=== PATIENT | female | born 1955 | race Caucasian/White ===

== ENCOUNTER 2023-04-14 09:49 | Outpatient (OUT) | payer MEDICARE, OTHER, SELFPAY ==
[2023-04-14 10:29] LABS: Basophils Percent Auto 0.8 % (0.2-2.0); Eosinophils Absolute Auto 0.1 10^3/uL (0.0-0.7); Eosinophils Percent Auto 2.7 % (0.9-7.0); Hematocrit 44.8 % (36.0-48.0); Hemoglobin 14.2 g/dL (12.0-16.0); Immature Granulocytes Abs Auto 0.02 10^3/uL (0.00-0.03); Immature Granulocytes Pct Auto 0.4 % (0.0-0.5); Lymphocytes Absolute Auto 1.8 10^3/uL (1.2-3.8); Mean Corpuscular HGB Conc 31.7 g/dL (29.9-35.2); Mean Corpuscular Hemoglobin 28.4 pg (26.7-34.0); Mean Corpuscular Volume 89.6 fL (81.0-99.0); Mean Platelet Volume 9.8 fL (9.5-13.5); Monocytes Absolute Auto 0.5 10^3/uL (0.3-0.8); Monocytes Percent Auto 9.7 % (1.7-12.0); Neutrophils Absolute Auto 2.8 10^3/uL (1.4-6.5); Neutrophils Percent Auto 52.4 % (43.0-75.0); Platelet Count 244 10^3/uL (150-450); Red Cell Distribution Width 13.1 % (11.0-15.0); White Blood Count 5.3 10^3/uL (4.0-11.0)
[2023-04-14 11:15] LABS: Microalbumin Urine Random <1.3 mg/dL (<=30.0)
[2023-04-14 11:15] LABS: Alanine Aminotransferase 29 U/L (14-59); Anion Gap 8.4; BUN Creatinine Ratio 20.2; Calcium 8.5 mg/dL (8.5-10.1); Carbon Dioxide 29.8 mmol/L (21.0-32.0); Chloride 103 mmol/L (98-107); Chol HDL Ratio 2.6; Cholesterol 166 mg/dL (<=200); Estimated GFR (African America >60 (>=60); Estimated GFR (Non-African Ame 50 (>=60); Glucose 156 mg/dL (74-106); HDL Cholesterol 63 mg/dL (40-60); Potassium 4.2 mmol/L (3.5-5.1); Sodium 137 mmol/L (136-145); Triglycerides 103 mg/dL (<=150); VLDL CHOLESTEROL 20.6 mg/dL
== END 2023-04-14 09:50 | disposition home or self-care (01) ==
PROVIDERS: PCP Internal Medicine; Visit Provider Internal Medicine
DX: E10.65 Type 1 diabetes mellitus with hyperglycemia (principal); I10 Essential (primary) hypertension; E78.2 Mixed hyperlipidemia; Z79.899 Other long term (current) drug therapy
CPT/HCPCS: 36415; 80048; 80061; 82043; 84460; 85025

== ENCOUNTER 2024-04-30 10:26 | Outpatient (OUT) | payer MEDICARE, OTHER, SELFPAY ==
[2024-04-30 11:24] LABS: Basophils Absolute Auto 0.1 10^3/uL (0.0-0.1); Basophils Percent Auto 1.3 % (0.2-2.0); Eosinophils Absolute Auto 0.2 10^3/uL (0.0-0.7); Eosinophils Percent Auto 3.8 % (0.9-7.0); Hematocrit 43.7 % (36.0-48.0); Hemoglobin 14.4 g/dL (12.0-16.0); Immature Granulocytes Abs Auto 0.02 10^3/uL (0.00-0.03); Immature Granulocytes Pct Auto 0.4 % (0.0-0.5); Lymphocytes Percent Auto 38.1 % (20.5-60.0); Mean Corpuscular Hemoglobin 29.2 pg (26.7-34.0); Mean Corpuscular Volume 88.6 fL (81.0-99.0); Monocytes Absolute Auto 0.5 10^3/uL (0.3-0.8); Neutrophils Absolute Auto 2.5 10^3/uL (1.4-6.5); Neutrophils Percent Auto 46.4 % (43.0-75.0); Platelet Count 261 10^3/uL (150-450); Red Blood Count 4.93 10^6/uL (4.20-5.40); Red Cell Distribution Width 13.1 % (11.0-15.0); White Blood Count 5.3 10^3/uL (4.0-11.0)
[2024-04-30 11:33] LABS: Microalbumin Urine Random <1.3 mg/dL (<=30.0)
[2024-04-30 16:10] LABS: Alanine Aminotransferase 30 U/L (14-59); Albumin Globulin Ratio 0.9; Albumin Level 3.6 g/dL (3.4-5.0); Alkaline Phosphatase 81 U/L (46-116); Anion Gap 13.2; Aspartate Amino Transferase 35 U/L (15-37); Bilirubin Total 0.7 mg/dL (0.2-1.0); Calcium 8.8 mg/dL (8.5-10.1); Carbon Dioxide 29.1 mmol/L (21.0-32.0); Chloride 102 mmol/L (98-107); Chol HDL Ratio 2.7; Cholesterol 173 mg/dL (<=200); Estimated GFR (African America >60 (>=60); Estimated GFR (Non-African Ame 55 (>=60); Globulin 3.9 g/dL; Glucose 139 mg/dL (74-106); HDL Cholesterol 63 mg/dL (40-60); Potassium 4.3 mmol/L (3.5-5.1); Sodium 140 mmol/L (136-145); Total Protein 7.5 g/dL (6.4-8.2); Triglycerides 96 mg/dL (<=150); VLDL CHOLESTEROL 19.2 mg/dL
== END 2024-04-30 10:27 | disposition home or self-care (01) ==
LOC: LAB 10:34
PROVIDERS: PCP Internal Medicine; Visit Provider Internal Medicine
DX: I12.9 Hypertensive chronic kidney disease with stage 1 through stage 4 chronic kidney disease, or unspecified chronic kidney disease (principal); N18.9 Chronic kidney disease, unspecified; E10.42 Type 1 diabetes mellitus with diabetic polyneuropathy; E78.00 Pure hypercholesterolemia, unspecified; E55.9 Vitamin D deficiency, unspecified
CPT/HCPCS: 36415; 80053; 80061; 82043; 82306; 85025

== ENCOUNTER 2025-05-02 10:47 | Outpatient (OUT) | payer MEDICARE, OTHER, SELFPAY ==
--- OUTSIDE RECORDS SUMMARY | 2025-04-29 10:45 | XMS_ITS | Encounter Summary ---
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 Never 05/30/2023 Q2: How many drinks containi ng alcohol do you have on a typical day when you are drinking? Patient does not drink Q3: How often do you have si x or more drinks on one occasion? Never 05/30/2023 PHQ-2 Answer Date Recorded Patient Health Questionnaire-2 Score 0 04/29/2025 Comments Unknown Sex and Gender Information Value Date Recorded Sex Assigned at Not on file Legal Sex Female 8:28 PM EDT Gender Identity Not on file Sexual Orientation Not on file documented as of this encounter Last Filed Vital Signs Vital Sign Reading Time Taken Comments Blood Pressure 116/64 04/29/2025 10:51 AM EDT Pulse 68 04/29/2025 10:51 AM EDT Temperature 36.7 C (98.1 F) 04/29/2025 10:51 AM EDT Respiratory Rate - - Oxygen Saturation 98% 04/29/2025 10:51 AM EDT Inhaled Oxygen Concentration - - Weight 72.1 kg (159 lb) 04/29/2025 10:51 AM EDT Height 157.5 cm (5' 2 ) 04/29/2025 10:51 AM EDT Body Mass Index 29.08 04/29/2025 10:51 AM EDT documented in this encounter Functional Status * Over the past 2 weeks, how often have you been bothered by any of the following problems? 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 Encouraged to check blood glucose throughout the day with some fasting and some PP readings. They are to bring their glucose meter/cgm in to all appointments. All of the patients questions, treatment options, and current care plan and goals were discussed. Acopy of this along with pertinent instructions were given to the patient at the end of the appointment. The patient voices understanding of all of this and is to call in between appointments if they have any problems or questions. Dinorah Cifuentes control is stable overall. , The patient is wearing their cgm on a daily basis and making decisions in regards to adjusting insulin daily as well for at least the last 60 days , Instructions given today include: Pump instructions and Dietary education. Will increase basal rate at 12A and 4P, decrease at 10A. Tighten carb ratio for dinner. * Dione Pritchett DO - 04/29/2025 10:45 AM EDT Images from the original note were not included. Dinorah Cifuentes is a 70 y.o. female presents with chief complaint of Diabetes HPI: Diabetes Mellitus Follow-up: Dinorah Cifuentes is here for follow-up evaluation of diabetes mellitus. The initial diagnosis of diabetes was made in 1978 Diabetes complications: retinopathy Hx of diabetes medications tried: none She has been checking her blood glucose with a T:slim pump and Dexcom G7 CGM on a daily basis. Bg running higher overnight and late in the evening, she will drop some during the day. Last A1c: 6.5 (12/26/24) Last eye exam: 10/2023 Current concerns include: She states she is confused with the carb ratio and insulin. She has been changing the carb ratio herself but feels she is not doing it right. BG levels: unsure- maybe similar to last visit. 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) Vitamin D deficiency Mixed hyperlipidemia Goiter Essential hypertension Hammer toe Shock (HCC) Vaginal discharge Social History Tobacco Use Smoking status: Never Passive exposure: Past Smokeless tobacco: Never Substance Use Topics Alcohol use: Not Currently Drug use: Never Allergies Allergen Reactions Sulfa Antibiotics Rash Synopsis SmartLink 04/29/2025 00:00 Antidiabetic medications Insulin Lispro 1 Dose See admin instructions PER INSULIN PUMP 70 UNITS MAX DAILY SC (100 UNIT/ML SOLN) Labs [facility] HEMOGLOBIN A1C/HEMOGLOBIN.TOTAL:MFR:PT:BLD:QN: 6.8 Outpatient prescription Medication marked as long-term The ASCVD Risk score (Kaushik DK, et al., 2019) failed to calculate for the following reasons: Cannot find a previous HDL lab Cannot find a previous total cholesterol lab Unable to determine if patient is Non- REVIEW OF SYMPTOMS: Review of Systems Constitutional: Negative for appetite change, fatigue and unexpected weight change. Eyes: Negative for visual disturbance. Respiratory: Negative for cough, shortness of breath and wheezing. Cardiovascular: Negative for chest pain, palpitations and leg swelling. Neurological: Positive for numbness. Endocrine: Negative for polydipsia, polyphagia and polyuria. OBJECTIVE: 04/29/2025 10:51 AM 12/26/2024 10:42 AM 09/27/2024 11:12 AM Vitals BMI 29.08 kg/m2 28.72 kg/m2 29.26 kg/m2 Systolic 116 124 126 Diastolic 64 64 62 Heart Rate 68 73 72 Temp 98.1 °F 98 °F 97.2 °F Height (in) 5' 2 5' 2 5' 2 Weight (lb) 159 157 160 Visit Report Report Report Report Physical Exam Constitutional: General: She is not in acute distress. Appearance: Normal appearance. Cardiovascular: Rate and Rhythm: Normal rate and regular rhythm. Heart sounds: No murmur heard. No friction rub. No gallop. Pulmonary: Breath sounds: Normal breath sounds. No wheezing, rhonchi or rales. Musculoskeletal: General: No swelling. Neurological: Mental Status: She is alert. 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 Encouraged to check blood glucose throughout the day with some fasting and some PP readings. They are to bring their glucose meter/cgm in to all appointments. All of the patients questions, treatment options, and current care plan and goals were discussed. Acopy of this along with pertinent instructions were given to the patient at the end of the appointment. The patient voices understanding of all of this and is to call in between appointments if they have any problems or questions. Dinorah Cifuentes control is stable overall. , The patient is wearing their cgm on a daily basis and making decisions in regards to adjusting insulin daily as well for at least the last 60 days , Instructions given today include: Pump instructions and Dietary education. Will increase basal rate at 12A and 4P, decrease at 10A. Tighten carb ratio for dinner. 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 Patient's Medications New Prescriptions No medications on file Previous Medications ASPIRIN 325 MG EC TABLET Daily B COMPLEX VITAMINS CAPSULE Take 1 capsule by mouth in the morning. BUPROPION XL (WELLBUTRIN XL) 150 MG 24 HR TABLET Take 150 mg by mouth in the morning. CHOLECALCIFEROL (VITAMIN D-3) 25 MCG (1000 UT) CAPSULE Take 1,000 Units by mouth in the morning. CONTINUOUS GLUCOSE SENSOR (DEXCOM G7 SENSOR) MISC Inject 1 Device under the skin See administrationinstructions Change every 10 days GLUCOSE BLOOD (ACCU-CHEK GUIDE) TEST STRIP 1 each by Other route if needed (6 times a day). INSULIN LISPRO 100 UNIT/ML SOLUTION Inject 1 Dose under the skin See administration instructions PER INSULIN PUMP 70 UNITS MAX DAILY IRON POLYSACCHARIDES (NU-IRON,NIFEREX) 150 MG CAPSULE every 7 (seven) days LISINOPRIL 10 MG TABLET Take 10 mg by mouth in the morning. METOPROLOL SUCCINATE XL (TOPROL-XL) 25 MG 24 HR TABLET Take 12.5 mg by mouth in the morning. MULTIPLE VITAMINS-MINERALS (EMERGEN-C IMMUNE) PACK as directed Orally OMEGA-3 FATTY ACIDS (FISH OIL PO) Take 1 capsule by mouth Daily ROSUVASTATIN (CRESTOR) 10 MG TABLET Take 10 mg by mouth in the morning. 3 x a week. Modified Medications Modified Medication Previous Medication INSULIN INFUSION PUMP (T:SLIM INSULIN PUMP) DEVICE Insulin Infusion Pump (T:slim Insulin Pump) device Basal: 12A 0.8, 6A 1.0, 10A 0.8, 4P 1.1, ICR: 12A 8, 6A 6, 4P 7 ISF: 50 Target: 110 Basal: 12A 0.675, 6A 1.0, 3P 0.6, 6P 0.9, ICR: 12A 8, 6A 6, 3P 7 ISF: 50 Target: 110 Discontinued Medications No medications on file I have reviewed and reconciled the history and medication list with the patient today. 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) documented in this encounter Results * Hemoglobin A1c (04/29/2025) HEMOGLOBIN A1C 6.8 [facility] Blood Venous blood specimen / Unknown 04/29/2025 us Dione Pritchett DO LAB BLOOD ORDERABLES Final Result [facility] documented in this encounter Visit Diagnoses Diagnosis 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
--- OUTSIDE RECORDS SUMMARY | 2025-05-02 10:58 | XMS_ITS | Encounter Summary ---
Author Organization [facility] Address [address] [place] [address] Care Team Providers Care Dental Hygienist Name Role Phone Chente Martinez DO Primary Care Provider [phone] Dione Pritchett DO Unavailable [phone] Chente Martinez DO Primary Care Provider [phone] Encounter Details Date Type Department Care Team (Late Contact Info) Description 09/27/2023 Abstract [facility] [address] [facility] [address] [place] [address] Dione Pritchett, DO [address] [facility] [address] [place] [address] Social History Tobacco Use Types Packs/Day Years Used Date Smoking Tobacco: Never Smokeless Tobacco: Never Alcohol Use Standard Drinks/Week [...] Date Recorded Patient Health Questionnaire-2 Score 0 05/30/2023 Comments Unknown Sex and Gender Information Value Date Recorded Sex Assigned at Not on file Legal Sex Female 8:28 PM EDT Gender Identity Not on file Sexual Orientation Not on file documented as of this encounter Plan of Treatment Upcoming Encounters Date Type Department Care Team (Late st Contact Info) Description 08/26/2025 10:45 AM EST Office Visit [facility] [address] [place] [address] Dione Pritchett DO [address] [place] [address] documented as of this encounter Visit Diagnoses Not on filedocumented in this encounter Care Teams Dental Hygienist Relationship Specialty Start Date End Date Chente Martinez DO PCP - General Internal Medicine 06/01/23 04/28/25 Dione Pritchett DO [address] [facility] [address] [place] [address] PCP - ACO Reach 12/15/23 Chente Martinez DO [address] [facility] [place] [address] PCP - General Internal Medicine 04/29/25 documented as of this encounter
--- OUTSIDE RECORDS SUMMARY | 2025-05-02 10:58 | XMS_ITS | Encounter Summary ---
Author Organization [facility] Address [address] [place] [address] Care Team Providers Care Beam Dyer Name Role Phone Chente Martinez DO Primary Care Provider [phone] Dione Pritchett DO Unavailable [phone] Chente Martinez DO Primary Care Provider [phone] Encounter Details Date Type Department Care Team (Late Contact Info) Description 10/17/2023 Abstract [facility] [address] [facility] [address] [place] [address] Dione Pritchett, DO [address] [facility] [address] [place] [address] Social History Tobacco Use Types [...] [address] [place] [address] Dione Pritchett DO [address] [place] [address] documented as of this encounter Visit Diagnoses Not on filedocumented in this encounter Care Teams Beam Dyer Relationship Specialty Start Date End Date Chente Martinez DO PCP - General Internal Medicine 06/01/23 04/28/25 Dione Pritchett DO [address] [facility] [address] [place] [address] PCP - ACO Reach 12/15/23 Chente Martinez DO [address] [facility] [place] [address] PCP - General Internal Medicine 04/29/25 documented as of this encounter
--- OUTSIDE RECORDS SUMMARY | 2025-05-02 10:58 | XMS_ITS | Encounter Summary ---
Author Organization [facility] Address [address] [place] [address] Care Team Providers Care Leading Firefighter Name Role Phone Chente Martinez DO Primary Care Provider [phone] Dione Pritchett DO Unavailable [phone] Chente Martinez DO Primary Care Provider [phone] Encounter Details Date Type Department Care Team (Late Contact Info) Description 09/26/2023 Abstract [facility] [address] [facility] [address] [place] [address] Dione Pritchett, DO [address] [facility] [address] [place] [address] Social History Tobacco Use Types [...] [address] [place] [address] Dione Pritchett DO [address] [place] [address] documented as of this encounter Visit Diagnoses Not on filedocumented in this encounter Care Teams Leading Firefighter Relationship Specialty Start Date End Date Chente Martinez DO PCP - General Internal Medicine 06/01/23 04/28/25 Dione Pritchett DO [address] [facility] [address] [place] [address] PCP - ACO Reach 12/15/23 Chente Martinez DO [address] [facility] [place] [address] PCP - General Internal Medicine 04/29/25 documented as of this encounter
--- OUTSIDE RECORDS SUMMARY | 2025-05-02 10:58 | XMS_ITS | Encounter Summary ---
Author Organization [facility] Address [address] [place] [address] Care Team Providers Care Balance Staff Inspector Name Role Phone Chente Martinez DO Primary Care Provider [phone] Dione Pritchett DO Unavailable [phone] Chente Martinez DO Primary Care Provider [phone] Encounter Details Date Type Department Care Team (Late st Contact Info) Description 05/30/2023 Abstract [facility] [address] [facility] [address] [place] [address] Dione Pritchett, DO [address] [facility] [address] [place] [address] Social History Tobacco Use Types [...] on file documented as of this encounter Functional Status * Audit-C Score Answer Date of Assessment Author 0 05/30/2023 10:44 AM Laura Clancy LPN * Question Answer Date of Assessment Author Q1: How often do you have a drink containing alcohol? Never 05/30/2023 10:44 AM Laura Clancy LPN Q2: How many drinks containing alcohol do you have on a typical day when you are drinking? Patient does not drink 05/30/2023 10:44 AM Laura Clancy LPN Q3: How often do you have six or more drinks on one occasion? Never 05/30/2023 10:44 AM Laura Clancy LPN * Over the past 2 weeks, how often have you been bothered by any of the following problems? Question Answer Date of Assessment Author Little interest or pleasure in doing things Not at all 05/30/2023 10:44 AM Laura Clancy LPN Feeling down, depressed, or hopeless Not at all 05/30/2023 10:44 AM Laura Clancy LPN Patient Health Questionnaire-2 Score 0 05/30/2023 10:44 AM Denise Clancy LPN documented as of this encounter Plan of Treatment Upcoming Encounters Date Type Department Care Team (Late st Contact Info) Description 08/26/2025 10:45 AM EST Office Visit [facility] [address] [place] [address] Dione Pritchett DO [address] [place] [address] documented as of this encounter Visit Diagnoses Not on filedocumented in this encounter Care Teams Balance Staff Inspector Relationship Specialty Start Date End Date Chente Martinez DO PCP - General Internal Medicine 06/01/23 04/28/25 Dione Pritchett DO [address] [place] [address] PCP - ACO Reach 12/15/23 Chente Martinez DO [address] [place] [id number] PCP - General Internal Medicine 04/29/25 documented as of this encounter
--- OUTSIDE RECORDS SUMMARY | 2025-05-02 10:58 | XMS_ITS | Encounter Summary ---
Author Organization [facility] Address [address] [place] [address] Care Team Providers Care Delivery Clerk Name Role Phone Chente Martinez DO Primary Care Provider [phone] Dione Pritchett DO Unavailable [phone] Chente Martinez DO Primary Care Provider [phone] Encounter Details Date Type Department Care Team (Late Contact Info) Description 10/17/2023 Abstract [facility] [address] [facility] [address] [place] [address] Dione Pritchett, DO [address] [facility] [address] [place] [address] Social History Tobacco Use Types [...] [address] [place] [address] Dione Pritchett DO [address] [place] [address] documented as of this encounter Visit Diagnoses Not on filedocumented in this encounter Care Teams Delivery Clerk Relationship Specialty Start Date End Date Chente Martinez DO PCP - General Internal Medicine 06/01/23 04/28/25 Dione Pritchett DO [address] [facility] [address] [place] [address] PCP - ACO Reach 12/15/23 Chente Martinez DO [address] [facility] [place] [address] PCP - General Internal Medicine 04/29/25 documented as of this encounter
--- OUTSIDE RECORDS SUMMARY | 2025-05-02 11:00 | XMS_ITS | Clinical Summary ---
Author Organization [facility] Address [address] [place] [address] Care Team Providers Care Circus Laborer Name Role Phone Dione Pritchett DO Unavailable [phone] Chente Martinez DO Primary Care Provider [phone] Allergies Active Allergy Reactions Criticality Noted Date Comments Sulfa Antibiotics Rash Low 05/30/2023 Medications glucose blood (Accu-Chek Guide) test strip 1 each by Other route if needed (6 times a day). Active lisinopril 10 MG tablet Take 10 mg by mouth in the morning. Active metoprolol succinate XL (Toprol-XL) 25 MG 24 hr tablet Take 12.5 mg by mouth in the morning. 023 Active Multiple Vitamins-Minerals (Emergen-C Immune) pack as directed Orally Active rosuvastatin (Crestor) 10 MG tablet Take 10 mg by mouth in the morning. 3 x a week. Active cholecalciferol (Vitamin D-3) 25 MCG (1000 UT) capsule Take 1,000 Units by mouth in the morning. Active b complex vitamins capsule Take 1 capsule by mouth in the morning. 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, unspecified laterality (HCC) Inject 1 Dose under the skin See administration instructions PER INSULIN PUMP 70 UNITS MAX DAILY 70 mL 3 025 Active Insulin Infusion Pump (T:slim Insulin Pump) deviceIndications:T ype 1 diabetes mellitus with mild nonproliferative retinopathy without macular edema, unspecified laterality (HCC) Basal: 12A 0.8, 6A 1.0, 10A 0.8, 4P 1.1, ICR: 12A 8, 6A 6, 4P 7 ISF: 50 Target: 110 1 each 025 Active Insulin Infusion Pump (T:slim Insulin Pump) deviceIndications:T ype 1 diabetes mellitus with mild nonproliferative retinopathy without macular edema, unspecified laterality (HCC) Basal: 12A 0.675, 6A 1.0, 3P 0.6, 6P 0.9, ICR: 12A 8, 6A 6, 3P 7 ISF: 50 Target: 110 1 each 025 2024 Disconti nued(Dos e adjustme nt) Active Problems Problem Noted Date Diagnosed Date Hypoglycemia due to type 1 diabetes mellitus Shock 10/15/2016 Vaginal discharge 02/06/2012 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 Encouraged to check blood glucose throughout the day with some fasting and some PP readings. They are to bring their glucose meter/cgm in to all appointments. All of the patients questions, treatment options, and current care plan and goals were discussed. A copy of this along with pertinent instructions were [...] at 10A. Tighten carb ratio for dinner. Assessment & Plan (12/26/2024 11:28 AM EDT): During the appointment today all pertinent labs, imaging, health maintenance, and glucose readings were reviewed. Encouraged to check blood glucose throughout the day with some fasting and some PP readings. They are to bring their glucose meter/cgm in to all appointments. All of the patients questions, treatment options, and current care plan and goals were discussed. A copy of this along with pertinent instructions were given to the patient at the end of the appointment. The patient voices understanding of all of this and is to call in between appointments if they have any problems or questions. Dinorah Cifuentes is doing very well and encouraged on this. , The patient is wearing their cgm on a daily basis and making decisions in regards to adjusting insulin daily as well for at least the last 60 days , Instructions given today include: Pump instructions and Dietary education. Will loosen carb ratio at lunch and tighten at dinner. Assessment & Plan (09/27/2024 12:50 PM EST): During the appointment today all pertinent labs, imaging, health maintenance, and glucose readings were reviewed. Encouraged to check blood glucose throughout the day with some fasting and some PP readings. They are to bring their glucose meter/cgm in to all appointments. All of the patients questions, treatment options, and current care plan and goals were discussed. A copy of this along with pertinent instructions were [...] 60 days , Instructions given today include: Hypoglycemia management and Pump instructions. Will loosen carb ratio for lunch and increase basal rate in the evening. Assessment & Plan (07/02/2024 9:35 PM EDT): During the appointment today all pertinent labs, imaging, health maintenance, and glucose readings were reviewed. Encouraged to check blood glucose throughout the day with some fasting and some PP readings. They are to bring their glucose meter/cgm in to all appointments. All of the patients questions, treatment options, and current care plan and goals were discussed. A copy of this along with pertinent instructions were given to the patient at the end of the appointment. The patient voices understanding of all of this and is to call in between appointments if they have any problems or questions. Dinorah Cifuentes is doing very well and encouraged on this. , Will stay on current medications. , The patient is wearing their cgm on a daily basis and making decisions in regards to adjusting insulin daily as well for at least the last 60 days , Discussed dietary changes at length. Encouraged to limit simple carbs and focus more on healthy protein/fat with all meals and snacks. They should also avoid any sugary drinks. , Instructions given today include: Pump instructions and Dietary education. She is to focus on eating more protein with her meals, especially breakfast. Assessment & Plan (04/02/2024 2:21 PM EDT): During the appointment today all pertinent labs, imaging, health maintenance, and glucose readings were reviewed. Encouraged to check blood glucose throughout the day with some fasting and some PP readings. They are to bring their glucose meter/cgm in to all appointments. All of the patients questions, treatment options, and current care plan and goals were discussed. A copy of this along with pertinent instructions were [...] 60 days , Instructions given today include: Hypoglycemia management and Pump instructions. Will decrease basal rate at 12A and 6A. Will work on getting her the G7 dexcom and contact the rep to help her with the software update with her pump in order to use G7. Assessment & Plan (01/05/2024 12:37 PM EDT): During the appointment today all pertinent labs, imaging, health maintenance, and glucose readings were reviewed. Encouraged to check blood glucose throughout the day with some fasting and some PP readings. They are to bring their glucose meter/cgm in to all appointments. All of the patients questions, treatment options, and current care plan and goals were discussed. A copy of this along with pertinent instructions were [...] 60 days , Instructions given today include: Hypoglycemia management and Pump instructions. Will stay with current settings. Encouraged her to count carbs and use the bolus wizard function on her pump instead of just putting in boluses when she is eating. Will contact the tandem rep as to why we cannot connect her pump to upload and see her cgm data. Assessment & Plan (10/08/2023 9:30 AM EST): During the appointment today all pertinent labs, imaging, health maintenance, and glucose readings were reviewed. Encouraged to check blood glucose throughout the day with some fasting and some PP readings. They are to bring their glucose meter/cgm in to all appointments. All of the patients questions, treatment options, and current care plan and goals were discussed. A copy of this along with pertinent instructions were [...] at least the last 60 days , Instructed on the importance of taking insulin before eating. If it has been more than 30-45 min since eating they should not give the meal dose but should just give a correction insulin dose. , Instructed on the proper insulin injection technique either in the abdomen, upper outer thigh, or back of the arm. They are to rotate injection sites to prevent scar tissue. , Instructions given today include: Hypoglycemia management and Pump instructions. Loosen carb ratio at breakfast and dinner to help prevent low bg. Hammer toe 06/30/2008 Vitamin D deficiency 12/01/2006 Goiter 10/12/2005 Essential hypertension 10/12/2005 Mixed hyperlipidemia 05/05/2003 Resolved Problems Problem Noted Date Diagnosed Date Resolved Date DKA (diabetic ketoacidosis) 10/16/2016 10/08/2023 Overview (05/30/2023): 07/16 Regulatory Import Insulin pump status 08/10/2016 10/08/20 23 Type 1 diabetes mellitus wit h mild nonproliferative diabetic retinopathy and without macular edema 08/20/2015 11/14/2023 Assessment & Plan (06/01/2023 8:35 PM EDT): During the appointment today all pertinent labs, imaging, health maintenance, and glucose readings were reviewed. Encouraged to check blood glucose throughout the day with some fasting and some PP readings. They are to bring their glucose meter/cgm in to all appointments. All of the patients questions, treatment options, and current care plan and goals were discussed. A copy of this along with pertinent instructions were given to the patient at the end of the appointment. The patient voices understanding of all of this and is to call in between appointments if they have any problems or questions. Dinorah Cifuentes is doing okay. Cleaned up the pump settings for the pt but really didn't make many changes. 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, unspecified laterality (HCC) 04/29/2025 Travel 04/28/2025 Telephone [facility] [address] [facility] 230 [place] [phone] Dione Pritchett DO Appointment Confirmation from Last 3 Months Immunizations Immunization Administration Dates Next Due Moderna SARS-CoV-2 Vaccination 10/05/2021 Family History Medical History Relation Name Comments Diabetes Father Heart attack Father Heart failure Mother Hypertension Mother Relation Name Status Comments Father Mother Alive Social History Tobacco Use Types Packs/Day Years Used Date Smoking Tobacco: Never Passive Smoke Exposure: Past Smokeless Tobacco: Never Tobacco Cessation:Counseling Given: Not Answered Alcohol Use Standard Drinks/Week Comments Not Currently [...] on file Sexual Orientation Not on file Last Filed Vital Signs Vital Sign Reading [...] Mass Index 29.08 04/29/2025 10:51 AM EDT Plan of Treatment Upcoming Encounters Date Type Department Care Team (Late st Contact Info) Description 08/26/2025 10:45 AM EST Office Visit [facility] [address] [place] [address] Dione Pritchett DO [address] [place] [address] Health Maintenance Due Date Last Done Comments CT Colonography 1955 Colonoscopy 1955 FIT 1955 FOBT 1955 Sigmoidoscopy 1955 Diabetes: Urine Protein Screening 1974 Pneumococcal Vaccine: 65+ Ye ars (1 of 2 - PCV) 1974 Mammogram 1995 Diabetes: Retinopathy Screening 11/10/2022 , 02/27/2019 Influenza Vaccine (#1) 2025 Diabetes: Hemoglobin A1C 07/30/2025 025, 12/26/2024, 09/27/2024, Additional history exists Colorectal Cancer Screening 05/02/2026 FIT-DNA 05/02/2026 05/02/2023, 04/16/2019 Procedures Procedure Name Priority Date/Time Associated Diagnosis Comments HEMOGLOBIN A1C Routine 04/29/2025 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) COLOR FUNDUS PHOTOGRAPHY - OU - BOTH EYES Routine 11/10/2021 12:00 PM EST from Last 3 Months or Most Recently Relevant to Health Maintenance Results * Hemoglobin A1c (04/29/2025) HEMOGLOBIN A1C 6.8 [facility] Blood Venous blood specimen / Unknown 04/29/2025 Dione Pritchett DO LAB BLOOD ORDERABLES Final Result [facility] * Color Fundus Photography - OU - Both Eyes (11/10/2021 12:00 PM EST) Anatomical Region Laterality Modality Head Fundus Photograp hy 11/10/2021 12:0 0 PM EST Narrative 11/10/2021 12:00 PM EST PERFORMED AT [facility] LOCATION:[id number] [facility] Procedure Note CONVERSION, GENERIC - 03/01/2023 PERFORMED AT [facility] LOCATION:[id number] [facility] Dione Pritchett DO OPHTH PHOTOGRAPHY Final Re sult from Last 3 Months or Most Recently Relevant to Health Maintenance Insurance [employer] [place] Care Teams Circus Laborer Relationship Specialty Start Date End Date Dione Pritchett DO [address] [facility] [address] [place] [address] PCP - ACO Reach 12/15/23 Chente Martinez DO [address] [facility] [place] [address] PCP - General Internal Medicine 04/29/25
--- OUTSIDE RECORDS SUMMARY | 2025-05-02 11:00 | XMS_ITS | Encounter Summary ---
Author Organization [facility] Address [address] [place] [address] Care Team Providers Care Woodworking Machinist Name Role Phone Chente Martinez DO Primary Care Provider [phone] Dione Pritchett DO Unavailable [phone] Chente Martinez DO Primary Care Provider [phone] Encounter Details Date Type Department Care Team (Late st Contact Info) Description 01/10/2025 Abstract [facility] [address] [facility] [address] [place] [address] Dione Pritchett, DO [address] [facility] 230 [place] [address] Social History Tobacco Use Types [...] Date Recorded Patient Health Questionnaire-2 Score 0 12/26/2024 Comments Unknown Sex and Gender Information Value [...] [facility] [address] [facility] [address] [place] [address] Dione Pritchett DO [address] [facility] [address] [facility] [address] [place] [address] documented as of this encounter Visit Diagnoses Not on filedocumented in this encounter Care Teams Woodworking Machinist Relationship Specialty Start Date End Date Chente Martinez DO PCP - General Internal Medicine 06/01/23 04/28/25 Dione Pritchett DO [address] [facility] [address] [place] [address] PCP - ACO Reach 12/15/23 Chente Martinez DO [address] [place] [address] PCP - General Internal Medicine 04/29/25 documented as of this encounter
--- OUTSIDE RECORDS SUMMARY | 2025-05-02 11:00 | XMS_ITS | Encounter Summary ---
Author Organization [facility] Address [address] [place] [address] Care Team Providers Care Senior Nuclear Medicine Technologist Name Role Phone Chente Martinez DO Primary Care Provider [phone] Dione Pritchett DO Unavailable [phone] Chente Martinez DO Primary Care Provider [phone] Encounter Details Date Type Department Care Team (Late st Contact Info) Description 04/03/2024 Abstract [facility] [address] [facility] [address] [place] [address] Dione Pritchett, DO [address] [facility] 230 [place] [address] Social History Tobacco Use Types [...] [facility] [address] [place] [address] Dione Pritchett DO [address] [facility] [address] [facility] [address] [place] [address] documented as of this encounter Visit Diagnoses Not on filedocumented in this encounter Care Teams Senior Nuclear Medicine Technologist Relationship Specialty Start Date End Date Chente Martinez DO PCP - General Internal Medicine 06/01/23 04/28/25 Dione Pritchett DO [address] [facility] [address] [place] [address] PCP - ACO Reach 12/15/23 Chente Martinez DO [address] [place] [address] PCP - General Internal Medicine 04/29/25 documented as of this encounter
--- OUTSIDE RECORDS SUMMARY | 2025-05-02 11:00 | XMS_ITS | Encounter Summary ---
Author Organization [facility] Address [address] [place] [address] Care Team Providers Care Order Builder Name Role Phone Chente Martinez DO Primary Care Provider [phone] Dione Pritchett DO Unavailable [phone] Chente Martinez DO Primary Care Provider [phone] Encounter Details Date Type Department Care Team (Late st Contact Info) Description 06/06/2024 Abstract [facility] [address] [facility] [address] [place] [address] Dione Pritchett, DO [address] [facility] [address] [place] [address] Social History Tobacco Use Types [...] [facility] [address] [facility] [address] [place] [address] Dione Pritchett DO [address] [facility] [address] [facility] [address] [place] [address] documented as of this encounter Visit Diagnoses Not on filedocumented in this encounter Care Teams Order Builder Relationship Specialty Start Date End Date Chente Martinez DO PCP - General Internal Medicine 06/01/23 04/28/25 Dione Pritchett DO [address] [facility] [address] [place] [address] PCP - ACO Reach 12/15/23 Chente Martinez DO [address] [place] [address] PCP - General Internal Medicine 04/29/25 documented as of this encounter
--- OUTSIDE RECORDS SUMMARY | 2025-05-02 11:00 | XMS_ITS | Encounter Summary ---
Author Organization [facility] Address [address] [place] [address] Care Team Providers Care Study Assistant Name Role Phone Dione Pritchett DO Unavailable [phone] Chente Martinez DO Primary Care Provider [phone] Encounter Details Date Type Department Care Team (Latest Contact Info) Description 04/29/2025 Travel Social History Tobacco Use Types Packs/Day Years [...] as of this encounter Functional Status * Over the past 2 weeks, how often have you been bothered by any of the following problems? Question Answer Date of Assessment Author Little interest or pleasure in doing things Not at all 04/29/2025 10:52 AM Laura Clancy LPN Feeling down, depressed, or hopeless Not at all 04/29/2025 10:52 AM Laura Clancy LPN Patient Health Questionnaire-2 Score 0 04/29/2025 10:52 AM EDT Denise Garcia LPN documented as of this encounter Plan of Treatment Upcoming Encounters Date Type Department Care Team (Late st Contact Info) Description 08/26/2025 10:45 AM EST Office Visit [facility] [address] [place] [address] Dione Pritchett DO [address] [facility] [address] [facility] [address] [place] [address] documented as of this encounter Visit Diagnoses Not on filedocumented in this encounter Care Teams Study Assistant Relationship Specialty Start Date End Date Dione Pritchett DO [address] [facility] [address] [place] [address] PCP - ACO Reach 12/15/23 Chente Martinez DO [address] [facility] [address] PCP - General Internal Medicine 04/29/25 documented as of this encounter
--- OUTSIDE RECORDS SUMMARY | 2025-05-02 11:00 | XMS_ITS | Clinical Summary ---
Author Organization [facility] Address [facility] [place] [address] Care Team Providers Care Executive Candidate Developer Name Role Phone Chente Martinez DO Primary Care Provider [phone] Allergies No known active allergies Medications MULTI VIT & MIN FORMULA TAB Take one(1) tablet daily. 0 07/17/20 02 Active Cholecalciferol (Vitamin D3) 1,000 unit ORAL Tab 1000 Iu a day with food. 0 0 02/17/20 07 Active subcutaneous insulin pump(ACCU-CHEK SPIRIT INSULIN PUMP) use as directed. 1 0 06/30/20 08 Active cyanocobalamin(VITAM IN B-12 500 MCG TAB) Take one(1) tablet daily. 0 0 01/27/20 09 Active Subcutaneous Admin Set (ACCU-CHEK ULTRAFLEX) 10 X 80 mm-cm SUBCUTANEOUS ISet Inject subcutaneousl y. change every 3 rd day. 30 Each 3 02/10/20 12 Active aspirin, enteric coated 325 mg EC tablet Take 1 tablet by mouth once daily. 0 08/14/20 13 Active RESTASIS 0.05 % ophthalmic emulsion Use 1 Drop in both eyes twice daily. 12/20/19 14 Active Blood-Glucose Meter (ONETOUCH ULTRA2) monitoring kit 1 Each as needed. 1 Each 0 03/01/20 16 Active rosuvastatin (CRESTOR) 10 mg tablet one Mon, Mon and Fridays. 90 tablet 3 09/28/20 16 Active lancets (ONE TOUCH DELICA) 33 gauge misc CHECK BLOOD SUGARS 6x TIMES DAILY insulin dependent using insulin pump, dx code E10.65 600 Each 3 10/03/20 16 Active metoprolol succinate ER (TOPROL XL) 25 mg 24 hr tabletIndications:Ty pe 1 diabetes mellitus with mild nonproliferative retinopathy of both eyes without macular edema (HCC),Insulin pump status,Labile blood glucose Take 1 tablet by mouth once daily. 0 02/15/20 17 Active Lancets (ACCU-CHEK FASTCLIX LANCET DRUM) lancets Check six times per day 200 Each 11 05/04/20 18 Active blood sugar diagnostic (ONETOUCH ULTRA BLUE TEST STRIP) test strip Check six times per day 200 Strip 11 05/04/20 18 Active lisinopril (ZESTRIL, PRINIVIL) 20 mg tablet Take 20 mg by mouth once daily. Active rosuvastatin (CRESTOR) 10 mg tablet Take 10 mg by mouth. Active metoprolol tartrate, short acting, (LOPRESSOR) 25 mg tablet Take 12.5 mg by mouth once daily. 3 07/09/20 18 Active FERREX 150 150 mg iron capsule Take 150 mg by mouth once daily. 11 05/10/20 18 Active azithromycin (ZITHROMAX) 250 mg tablet Take by mouth as directed. 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 08/20/2015 Vaginal discharge 02/06/2012 Polyneuropathy in diabetes(357.2) 06/30/2008 HAMMER TOE 06/30/2008 Depressive disorder, not elsewhere classified Unspecified vitamin D deficiency 12/01/2006 Unspecified essential hypertension 10/12/2005 Goiter, unspecified 10/12/2005 Type 1 diabetes mellitus 05/05/2003 Mixed hyperlipidemia 05/05/2003 Resolved Problems Problem Noted Date Diagnosed Date Resolved Date Essential hypertension, benign 05/05/2003 07/20/2007 Family History Medical History Relation Comments Thyroid Brother 3 Diabetes Father Cervical Cancer Mother Relation Status Comments Brother 1 Alive 38 ,thyroid agen esis, slow learner Brother 2 Alive 45, healthy Brother 3 Father (Age 43) DM age 10, Blo od clot in heart, blindness from DM Maternal Grandfather (Age 80s) [place] Maternal Grandmother (Age 71) goiter, c ancer ? liver Mother Alive 72 yo, arthritis Paternal Grandmother (Age 90) HTN, old age Sister Alive 51 yo, healthy Social History Tobacco Use Types Packs/Day Years Used Date Smoking Tobacco: Never Smokeless Tobacco: Never Alcohol Use Standard Drinks/Week Comments No 0 (1 standard drink = 0.6 oz pur e alcohol) Area Deprivation Index Answer Date Severino rded National Score (1-100), lower number is lower ri sk Not on file 09/20/2020 State Score (1-10), lower number is lower risk N ot on file 09/20/2020 Data from: https://www.neighborhoodatlas.medicine.[facility].edu/. 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 Not on file Not on file Last Filed Vital Signs Vital Sign Reading Time Taken Comments Blood Pressure 128/62 07/23/2018 1:48 PM EDT Pulse 78 07/23/2018 1:48 PM EDT Temperature - - Respiratory Rate 16 08/14/2006 10:2 3 AM EST Oxygen Saturation - - Inhaled Oxygen Concentration - - Weight 74.3 kg (163 lb 12.8 oz) 07/23/2018 1:48 PM EDT Height 162.6 cm (5' 4 ) 07/23/2018 1:48 PM EDT Body Mass Index 28.12 07/23/2018 1:48 PM EDT Plan of Treatment Health Maintenance Due Date Last Done Comments Anxiety Screening 1973 Depression Screening 1973 Hepatitis C Screening 1973 DTaP,Tdap,Td Vaccine (1 - Tdap) 1974 CT Colonography 2000 Cologuard (FIT-DNA) 2000 Fecal Occult Blood 2000 Sigmoidoscopy 2000 Pneumococcal Vaccine: 50+ (1 of 1 - PCV) 2005 Shingrix Vaccine (1 of 2) 2005 Diabetes Screening 10/12/2008 10/12/2005, 0 05/05/2003, 05/05/2003, Additional history exists Lipid Screening 02/16/2010 02/16/2005, 0710/2002, 10/21/2002 Colonoscopy 02/17/2017 02/18/2016 (Patient/Parent/Guardian Counseled and Declines), 02/13/2014 Colorectal Cancer Screening 02/17/2017 Mammogram Screening 02/17/2017 02/18/2016 (Patient/Parent/Guardian Counseled and Declines), 02/13/2014 (Patient/Parent/Guardian Counseled and Declines), 08/15/2011 (Patient Declined), Additional history exists Bone Density Screening 2020 Covid-19 Vaccine (2023-2 5 season) 2024 Advance Directive Discussion 10/16/2024 Influenza Vaccine (#1) 2025 RSV Vaccine (1 - 1-dose 75+ series) 2030 Procedures Procedure Name Priority Date/Time Associated Diagnosis Comments HEMOGLOBIN A1C Routine 10/12/2005 9:36 AM EST DIABETES UNCOMPL MARGUERITE-TYPE I LDL CHOLESTEROL DIR Routine 05/05/2003 2 :10 PM EDT Mixed Hyperlipidemia from Last 3 Months or Most Recently Relevant to Health Maintenance Results * (ABNORMAL) HGB A1C (10/12/2005 9:36 AM EST) Hemoglobin A1C 7.6(A) 4.0 - 6.0 % [facility] Blood specimen (specimen) BLOOD SPECIMEN / Unknown 10/12/2005 9:36 AM EST [facility] Final Result [facility] [address] [place] [address] * (ABNORMAL) LDL CHOLESTEROL DIR (05/05/2003 2:10 PM EDT) LDL Cholesterol, Direct 159(A) 60 - 129 mg/dL [facility] Blood specimen (specimen) BLOOD SPECIMEN / Unknown 05/05/2003 2:10 PM EDT [facility] Final Result [facility] [address] [place] [address] from Last 3 Months or Most Recently Relevant to Health Maintenance Insurance [employer] Care Teams Executive Candidate Developer Relationship Specialty Start Date End Date Chente Martinez DO [address] [facility] [place] [address] PCP - General 09/03/02
--- OUTSIDE RECORDS SUMMARY | 2025-05-02 11:00 | XMS_ITS | Encounter Summary ---
Author Organization [facility] Address [facility] [place] [address] Care Team Providers Care Fire Adjuster Name Role Phone Chente Martinez DO Primary Care Provider [phone] Source Comments In the event this information is protected by the Federal Confidentiality of Alcohol and Drug AbusePatient Records regulations: The Federal rules restrict any use of the information to criminally investigate or prosecute any alcohol or drug abuse patient.[facility] Encounter Details Date Type Department Care Team (Late st Contact Info) Description 01/21/2009 Abstract Endocrinology [address] [place] [address] Elsie Pascual, SENIOR QUANTITY SURVEYOR.SOAP MIXER [address] [place] [address] Social History Tobacco Use Types Packs/Day Years Used Date Smoking Tobacco: Never Alcohol Use Standard Drinks/Week Comments No 0 (1 standard drink = 0.6 oz pur e alcohol) Comments No Sex and Gender Information Value Date Recorded Sex Assigned at Not on file Legal Sex Female 9:40 AM EST Gender Identity Not on file Sexual Orientation Not on file 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
--- OUTSIDE RECORDS SUMMARY | 2025-05-02 11:00 | XMS_ITS | Clinical Summary ---
Author Organization [facility] Address [id number] [address] [place] [address] Care Team Providers Care Security System Installer Name Role Phone Chente Martinez DO Primary Care Provider [phone] Allergies No known active allergies Medications rosuvastatin (CRESTOR) 10 mg tablet Take 10 mg by mouth 3 (three) times a week. Every Mon, Wed, FRI Active Active Problems Problem Noted Date Diagnosed Date DKA (diabetic ketoacidoses) 10/16/2016 Overview (07/16/2021): 07/16 Regulatory Import Shock 10/15/2016 Social History Tobacco Use Types Packs/Day Years Used Date Smoking Tobacco: Never Smokeless Tobacco: Never Alcohol Use Standard Drinks/Week Comments No 0 (1 standard drink = 0.6 oz pur e alcohol) Childcare Answer Date Recorded Childcare Unknown 03/27/2019 Employment Answer Date Recorded Employment Unknown 03/27/2019 Purpose - Life Answer Date Recorded Purpose and direction in life Unknown Comments No Sex and Gender Information Value Date Recorded Sex Assigned at Not on file Legal Sex Female 6:03 AM EST Gender Identity Not on file Sexual Orientation Not on file Last Filed Vital Signs Vital Sign Reading Time Taken Comments Blood Pressure 122/74 11/10/2016 12:00 AM EST Pulse 66 11/10/2016 12:00 AM EST Temperature 36.7 C (98.1 F) 10/20/2016 1:30 PM EST Respiratory Rate 18 10/20/2016 1:30 PM EST Oxygen Saturation 96% 10/20/2016 1:30 PM EST Inhaled Oxygen Concentration - - Weight 74.8 kg (165 lb) 11/10/2016 12:00 AM EST Height 160 cm (5' 3 ) 11/10/2016 12:00 AM EST Body Mass Index 29.23 11/10/2016 12:00 AM EST Plan of Treatment Health Maintenance Due Date Last Done Comments Depression Screening 1967 Tobacco Screening 1967 Adult BMI Screening 1973 DTaP,Tdap and Td Vaccines (1 - Tdap) 1974 Zoster (Shingles) Vaccine (1 of 2) 2005 Fall Risk Screening 2020 Influenza Vaccine 06/16/2025 Goals Goal Patient Goal Type Associated Problems Recent Progress Patient-Stated? Author home self care General Yes Sara Chapa, RN Note: Evaluation of progress towards goal:Pt verbalized agreement with d/c plan of home self care. Medical Devices Not on file Insurance [employer] Care Teams Security System Installer Relationship Specialty Start Date End Date Chente Martinez DO [address] [place] [address] PCP - General 10/18/16
--- OUTSIDE RECORDS SUMMARY | 2025-05-02 11:00 | XMS_ITS | Encounter Summary ---
Author Organization [facility] Address [address] [place] [address] Care Team Providers Care Multifocal Lens Assembler Name Role Phone Chente Martinez Primary Care Provider [phone] Dione Pritchett DO Unavailable [phone] Reason for Visit * Reason Onset Date Comments Appointment Confirmation 04/28/2025 Encounter Details Date Type Department Care Team (Late st Contact Info) Description 04/28/2025 Telephone [facility] [address] [facility] [address] [place] [id number] Dione Pritchett DO [address] [facility] [address] [place] [address] Appointment Confirmation Social History Tobacco Use Types Packs/Day Years [...] on file documented as of this encounter Miscellaneous Notes * Telephone Encounter - Shantel Ashleyinessasuzie - 04/28/2025 3:53 PM EDT LVM appointment reminder documented in this encounter Plan of Treatment Upcoming Encounters Date Type Department Care Team (Late st Contact Info) Description 08/26/2025 10:45 AM EST Office Visit [facility] [address] [place] [phone] Dione Pritchett DO [address] [place] [address] documented as of this encounter Visit Diagnoses Not on filedocumented in this encounter Care Teams Multifocal Lens Assembler Relationship Specialty Start Date End Date Chente Martinez DO PCP - General Internal Medicine 06/01/23 04/28/25 Dione Pritchett, [address] [place] [address] PCP - ACO Reach 12/15/23 documented as of this encounter
[2025-05-02 11:36] LABS: Hematocrit 43.9 % (36.0-48.0); Hemoglobin 14.4 g/dL (12.0-16.0); Immature Granulocytes Abs Auto 0.01 10^3/uL (0.00-0.03); Immature Granulocytes Pct Auto 0.2 % (0.0-0.5); Lymphocytes Absolute Auto 1.5 10^3/uL (1.2-3.8); Mean Corpuscular HGB Conc 32.8 g/dL (29.9-35.2); Mean Corpuscular Hemoglobin 28.6 pg (26.7-34.0); Mean Corpuscular Volume 87.1 fL (81.0-99.0); Platelet Count 246 10^3/uL (150-450); Red Blood Count 5.04 10^6/uL (4.20-5.40); White Blood Count 4.5 10^3/uL (4.0-11.0)
[2025-05-02 11:48] LABS: Alanine Aminotransferase 29 U/L (14-59); Albumin Globulin Ratio 0.9; Albumin Level 3.3 g/dL (3.4-5.0); Alkaline Phosphatase 72 U/L (46-116); Anion Gap 13.4; Aspartate Amino Transferase 29 U/L (15-37); Blood Urea Nitrogen 21.0 mg/dL (7.0-18.0); Calcium 8.6 mg/dL (8.5-10.1); Carbon Dioxide 29.7 mmol/L (21.0-32.0); Chloride 105 mmol/L (98-107); Cholesterol 166 mg/dL (<=200); Estimated GFR (African America >60 (>=60 mL/min/1.73m^2); Estimated GFR (Non-African Ame >60 (>=60 mL/min/1.73m^2); Globulin 3.8 g/dL; Glucose 132 mg/dL (74-106); HDL Cholesterol 63 mg/dL (40-60); Potassium 5.1 mmol/L (3.5-5.1); Sodium 143 mmol/L (136-145); Total Protein 7.1 g/dL (6.4-8.2); Triglycerides 77 mg/dL (<=150); VLDL CHOLESTEROL 15.4 mg/dL
== END 2025-05-02 10:48 | disposition home or self-care (01) ==
LOC: LAB 10:55
PROVIDERS: PCP Internal Medicine; Visit Provider Internal Medicine
DX: E78.00 Pure hypercholesterolemia, unspecified (principal); E10.65 Type 1 diabetes mellitus with hyperglycemia; N18.31 Chronic kidney disease, stage 3a; I12.9 Hypertensive chronic kidney disease with stage 1 through stage 4 chronic kidney disease, or unspecified chronic kidney disease
CPT/HCPCS: 36415; 80053; 80061